=== PATIENT | male | born 1995 | race Caucasian/White ===

== ENCOUNTER 2018-04-16 12:42 | Emergency (ER) | payer OTHER ==
[~2018-04-16] VITALS: Ht 165.1 cm; Wt 62.6 kg
[~2018-04-16 12:42] MED LIST: RISPERDAL PO
[2018-04-16 12:45] VITALS: Ht 165.1 cm; Wt 62.6 kg
[2018-04-16 14:27] LABS: CALCIUM 7.9 mg/dL (8.5-10.1); CARBON DIOXIDE 27.4 mmol/L (21-32); CHLORIDE SERUM 102 mmol/L (98-107); CREATININE SERUM 0.9 mg/dL (0.7-1.3); GFR1 > 60 mL/min; GLUCOSE SERUM 82 mg/dL (74-106); POTASSIUM SERUM 3.7 mmol/L (3.5-5.1); SODIUM SERUM 136 mmol/L (136-145)
[2018-04-16 15:01] LABS: ALBUMIN 4.1 g/dL (3.4-5.0); ALKALINE PHOSPHATASE 91 U/L (46-116); AST/SGOT 22 U/L (15-37); BILIRUBIN TOTAL 0.5 mg/dL (0.20-1.00); TOTAL PROTEIN, SERUM 7.5 g/dL (6.4-8.2)
[2018-04-16 15:16] LABS: ALT/SGPT 58 U/L (16-63)
[2018-04-16 15:32] VITALS: BP 114/61
== END 2018-04-16 15:32 | disposition home or self-care (01) ==
LOC: ED 12:42
PROVIDERS: Emergency Medicine
DX: R10.9 Unspecified abdominal pain (principal); E86.0 Dehydration; R19.7 Diarrhea, unspecified; F31.9 Bipolar disorder, unspecified
CPT/HCPCS: J1885; J2405